=== PATIENT | female | born 2000 | race Asian ===

== ENCOUNTER 2019-07-03 16:52 | Emergency (ER) | payer OTHER ==
[~2019-07-03] VITALS: Ht 167.6 cm; Wt 77.3 kg
[2019-07-03] MEDS ORDERED: IBUPROFEN 600 MG TABLET PO ONE (18:15)
[2019-07-03 21:00] VITALS: BP 138/96
== END 2019-07-03 21:07 | disposition home or self-care (01) ==
LOC: EMS 16:53
DX: S13.4XXA Sprain of ligaments of cervical spine, initial encounter (principal); V49.9XXA Car occupant (driver) (passenger) injured in unspecified traffic accident, initial encounter; Y93.89 Activity, other specified; Y92.488 Other paved roadways as the place of occurrence of the external cause; Y99.8 Other external cause status
CPT/HCPCS: 72040

== ENCOUNTER 2021-11-03 22:00 | Emergency (ER) | payer OTHER ==
[2021-11-03 22:34] VITALS: BP 135/72
[2021-11-03 23:26] LABS: COVID AG,FIA SOURCE NASAL SWAB
== END 2021-11-04 01:37 | disposition left against medical advice (07) ==
LOC: EMS 22:00
DX: R06.02 Shortness of breath (principal); Z53.21 Procedure and treatment not carried out due to patient leaving prior to being seen by health care provider